=== PATIENT | female | born 1955 | race Caucasian/White ===

== ENCOUNTER 2018-02-11 09:35 | Inpatient (IN) | payer OTHER ==
[2018-02-11] VITALS (8 sets, daily range): BP systolic 107–144; BP diastolic 68–81
[~2018-02-11] VITALS: Ht 165.1 cm; Wt 70.3 kg
[2018-02-11] MEDS ORDERED: ONDANSETRON HCL/PF 4 MG/2 ML VIAL IVP ONE (10:00)
[2018-02-11] MEDS ORDERED: HYDROMORPHONE INJ 2 MG/ML DISP.SYRIN IV ONE (10:00)
[2018-02-11] MEDS ORDERED: IV NS 0.9% 1,000 ML BAG IV ONE (10:00)
--- NOTE | 2018-02-11 10:00 | NUR ---
AAOX3, came to ER c/o NAUSEA AND VOMITING SINCE YESTERDAY RLQ ABD PAIN SINCE THIS MORNING. RR is even and unlabored with nad noted. Skin is warm and dry. Awaiting md for eval.
[2018-02-11 10:11] LABS: BASOPHILS # (AUTO) 0.4 /CMM (0.0-0.2); BASOPHILS % (AUTO) 2.4 % (0.0-2.0); EOSINOPHILS % (AUTO) 0.7 % (0.0-6.0); HEMATOCRIT 39 % (33-45); HEMOGLOBIN 12.5 g/dL (11.5-14.8); LYMPHOCYTES # (AUTO) 1.5 /CMM (0.8-4.8); LYMPHOCYTES % (AUTO) 9.3 % (20.0-44.0); MEAN CORPUSCULAR HEMOGLOBIN 30 PG (26.0-33.0); MEAN CORPUSCULAR HGB CONC 32 g/dl (31.0-36.0); MEAN CORPUSCULAR VOLUME 92 fL (82-100); MONOCYTES # (AUTO) 1.2 /CMM (0.1-1.30); MONOCYTES % (AUTO) 7.3 % (2.0-12.0); NEUTROPHILS # (AUTO) 13.1 /CMM (1.8-8.9); NEUTROPHILS % (AUTO) 80.3 % (43.0-81.0); PLATELET COUNT (AUTO) 480 /CMM (150-450); RDW COEFFICIENT OF VARIATION 17.5 (11.5-15.0); RED BLOOD CELL COUNT(AUTO) 4.24 MIL/uL (4.0-5.2); WHITE BLOOD COUNT (AUTO) 16.3 K/uL (4.3-11.0)
[2018-02-11 10:17] LABS: CALCIUM, SERUM 9.7 mg/dL (8.5-10.1); POTASSIUM 3.9 mmol/L (3.5-5.1)
[2018-02-11 10:23] LABS: ALBUMIN 3.5 g/dL (3.4-5.0); BILIRUBIN,DIRECT 0.1 mg/dL (0.0-0.2); BILIRUBIN,TOTAL 0.4 mg/dL (0.2-1.0); TOTAL PROTEIN, SERUM 7.2 g/dL (6.4-8.2)
[2018-02-11] MEDS ORDERED: ONDANSETRON HCL/PF 4 MG/2 ML VIAL ONE (10:31)
[2018-02-11] MEDS ORDERED: HYDROMORPHONE 1 MG/1 ML DISP.SYRIN ONE ×2 (10:32→12:02)
--- NOTE | 2018-02-11 11:20 | NUR ---
Patient is resting comfortably in bed with eyes closed. Easily aroused. VSS
[2018-02-11] MEDS ORDERED: HYDROMORPHONE 1 MG/1 ML DISP.SYRIN IV ONE (12:00)
[2018-02-11 12:03] LABS: APPEARANCE,URINE Clear (CLEAR); BILIRUBIN,URINE Negative (NEGATIVE); BLOOD, URINE Large Ery/uL (NEGATIVE); COLOR,URINE Yellow (YELLOW); KETONES,URINE Negative (NEGATIVE); LEUKOCYTE ESTERASE ,URINE Small (NEGATIVE); NITRITE, URINE Positive (NEGATIVE); PH,URINE 5.5 (5.0-8.0); PROTEIN,URINE 30 mg/dl (NEGATIVE); UGLUCOSE Negative (NEGATIVE); UROBILINOGEN,URINE 0.2 EU/dL (0.2)
[2018-02-11 12:06] LABS: BACTERIA,URINE 1+ /HPF (None Seen); URINE AMORPHOUS URATE Few /HPF (None Seen)
[2018-02-11] MEDS ORDERED: FLUO-120 PO (12:29)
[2018-02-11] MEDS ORDERED: ATOR40TA PO (12:29)
[2018-02-11] MEDS ORDERED: QUET25TA PO (12:29)
[2018-02-11] MEDS ORDERED: TOPI50TA24 PO (12:29)
[2018-02-11] MEDS ORDERED: GABA-534 PO (12:29)
[2018-02-11] MEDS ORDERED: BUPR300T54 PO (12:29)
[2018-02-11] MEDS ORDERED: CEFTRIAXONE 1 G in IV D5W 50 ML IV ONE (12:30)
[2018-02-11] MEDS ORDERED: CEFTRIAXONE 1GM BAG (ER ONLY) 1 GM/50 ML PIGGYBACK IV ONE (12:30)
--- NOTE | 2018-02-11 12:45 | NUR ---
Rocephin is a duplicate order.
--- NOTE | 2018-02-11 12:50 | NUR ---
Dr Riley at talking to patient.
[2018-02-11 13:01] LABS: INR 0.93 (0.87-1.13)
--- NOTE | 2018-02-11 13:10 | NUR ---
Report given to OR, RN for ANGELA. Patient is goint to OR.
[2018-02-11] MEDS ORDERED: MIDAZOLAM HCL 2 MG/2ML VIAL ONE (13:25)
[2018-02-11] MEDS ORDERED: FENTANYL PF 100MCG/2ML AMPUL ONE ×2 (13:25→14:03)
[2018-02-11] MEDS ORDERED: MEPERIDINE HCL/PF 100 MG/ML DISP.SYRIN ONE (14:08)
[2018-02-11] MEDS ORDERED: LABETALOL HCL IV 100MG VIAL ONE (14:22)
--- NOTE | 2018-02-11 15:00 | NUR ---
MS/RN New admission New admit from operating room, s/p cystoscopy with right sided renal stent placement. Vital signs recorded as per hospital protocol, all remain within normal range for patient. Lethargic following surgery but easily abusable. at bedside, able to assist with information gathering for admission. Call light within reach, safety measures in place, will continue to monitor and ensure safety post surgery.
[2018-02-11] MEDS ORDERED: MORPHINE SULFATE INJ 2 MG/ML DISP.SYRIN IV PRN (15:30)
[2018-02-11] MEDS ORDERED: MAG HYDROX/AL HYDROX/SIMETH 30 ML UDC PO PRN (15:30)
[2018-02-11] MEDS ORDERED: HYDROCODONE/APAP 5/325MG 1 EACH TABLET PO PRN (15:30)
[2018-02-11] MEDS ORDERED: ACETAMINOPHEN 325 MG TABLET PO PRN (15:30)
[2018-02-11] MEDS ORDERED: ONDANSETRON HCL/PF 4 MG/2 ML VIAL IVP PRN (15:30)
[2018-02-11] MEDS ORDERED: Z GUARD REMEDY 2 OZ OINT TP PRN (15:30)
[2018-02-11] MEDS: GABAPENTIN 300 MG CAPSULE PO SCH (17:00)
[2018-02-11] MEDS: MORPHINE SULFATE INJ 4 MG/ML DISP.SYRIN IV PRN ×2 (17:30→20:49)
--- NOTE | 2018-02-11 17:34 | NUR ---
MS/RN Non administer Neurontin 600mg non administered as patient still lethargic from surgery. At risk of aspirating.
[2018-02-11] MEDS ORDERED: OXYMETAZOLINE HCL NASAL SPRAY 30 ML BOTTLE NS PRN (18:00)
--- NOTE | 2018-02-11 18:23 | NUR ---
MS/RN Kris note Remains in stable condition, voiding post surgery, pain well controlled with morphine. Complaining of congestion andstating that uses afrin spray BID at home. MD called and order obtained. Will endorse to night coordinator.
[2018-02-11] MEDS: IV NS 0.9% 1,000 ML IV PRN (18:43)
--- NOTE | 2018-02-11 19:05 | NUR ---
MS RN NOTES RECEIVED LAYING COMFORTABLY ON BED,A/O X4,S/P CYSTOSCOPY WITH RIGHT RENAL STENT PLACEMENT 02/[address] ALCANTAR.PAIN TOLERABLE AT THE MOMENT.CALL LIGHT IN REACH,NEEDS ANTICIPATED.
--- NOTE | 2018-02-11 20:00 | NUR ---
MS RN NOTES AWAKE,ASSISTED TO USE THE BEDPAN,PEED SMALL AMOUNT.C/O MIGRAINE HEADACHE.RESTLESS.ASKING FOR IMITREX,CLAIMED THATS HER HOME MEDS FOR SEVER MIGRAINE NEEDED AND TOPAMAX EVERY NIGHT.
--- NOTE | 2018-02-11 20:10 | NUR ---
MS RN NOTES. DR JHAVERI MADE AWARE,ORDERED OK TO GIVE MEDICATION THAT SHE TAKE S AT HOME. PER PATIENT SHE'S TAKING IMITREX 100MG PO FOR SEVERE MIGRAINE NEEDED.
[2018-02-11] MEDS: SUMATRIPTAN SUCCINATE 100 MG TABLET PO PRN (20:18)
--- NOTE | 2018-02-11 20:18 | NUR ---
MS RN NOTES IMITREX 100 PO GIVEN PER PATIENT REQUEST ORDERED.
--- NOTE | 2018-02-11 20:49 | NUR ---
MS GLORIA NOTES PAIN MANAGEMENT C/O GENERALIZED PAIN 8/10 ON PAIN SCALE,NORCO 10/325MG 1TAB PO GIVEN ORDERED.OFFERED NORCO 5/325MG BUT REFUSED.CLAIMED IT DOESNT WORK AND SHE TAKE NORCO 10/325MG.DR JHAVERI AWARE. Addendum: 02/11/18 at 2128 by JULIO UREÑA RN ABOVE GENERALIZED PAIN MANAGE WITH MORPHINE 2MG IV ORDERED,NOT NORCO 10/325MG
[2018-02-11] MEDS: QUETIAPINE FUMARATE 25 MG TABLET PO SCH (22:12)
[2018-02-11] MEDS: TOPIRAMATE 100 MG TABLET PO SCH (22:13)
[2018-02-11] MEDS: HYDROCODONE/APAP 10/325MG 1 EA TABLET PO PRN (23:59)
[2018-02-12] MEDS: MORPHINE SULFATE INJ 4 MG/ML DISP.SYRIN IV PRN ×3 (05:29→20:49)
--- NOTE | 2018-02-12 05:29 | NUR ---
MS RN NOTES AWAKE THIS TIME.LOSS MITIGATION SPECIALIST AT BEDSIDE FOR MORNING LABS DRAW.C/O GENERALIZED PAIN 8/10 ON PAIN SCALE.MORPHINE 2MG IV GIVEN ORDERED AND PER PATIENT REQUEST.
--- NOTE | 2018-02-12 06:30 | NUR ---
MS RN NOTES CALM AND QUIET AT THIS TIME.PAIN MANAGEMENT EFFECTIVE.STRAINED URINE,NEGATIVE FOR KIDNEY STONE NOTED.WILL CONTINUE TO MONITOR STATUS.
[2018-02-12 06:35] LABS: BASOPHILS % (AUTO) 0.1 % (0.0-2.0); EOSINOPHILS % (AUTO) 0.3 % (0.0-6.0); HEMATOCRIT 32 % (33-45); HEMOGLOBIN 10.1 g/dL (11.5-14.8); LYMPHOCYTES # (AUTO) 1.7 /CMM (0.8-4.8); MEAN CORPUSCULAR HEMOGLOBIN 30 PG (26.0-33.0); MEAN CORPUSCULAR HGB CONC 32 g/dl (31.0-36.0); MEAN CORPUSCULAR VOLUME 94 fL (82-100); MONOCYTES # (AUTO) 1.2 /CMM (0.1-1.30); MONOCYTES % (AUTO) 5.8 % (2.0-12.0); NEUTROPHILS # (AUTO) 18.1 /CMM (1.8-8.9); NEUTROPHILS % (AUTO) 85.8 % (43.0-81.0); PLATELET COUNT (AUTO) 354 /CMM (150-450); RDW COEFFICIENT OF VARIATION 18.3 (11.5-15.0); RED BLOOD CELL COUNT(AUTO) 3.36 MIL/uL (4.0-5.2)
[2018-02-12 06:57] LABS: CALCIUM, SERUM 6.1 mg/dL (8.5-10.1); CREATININE 0.6 mg/dL (0.6-1.3); MAGNESIUM 1.3 mg/dL (1.8-2.4); PHOSPHORUS 5.6 mg/dL (2.5-4.9); POTASSIUM 3.3 mmol/L (3.5-5.1)
[2018-02-12] MEDS: IV NS 0.9% 1,000 ML IV PRN ×2 (07:23→19:54)
[2018-02-12 08:00] VITALS: BP 157/95
[2018-02-12] MEDS: SUMATRIPTAN SUCCINATE 100 MG TABLET PO PRN ×2 (08:00→20:00)
--- NOTE | 2018-02-12 08:00 | NUR ---
MS RN AM NOTES AWAKE AND ORIENTED X4.VERBALLY RESPONSIVE.ASSISTED TO USE THE BEDPAN X3,VOIDED MODERATE AMOUNT-STRAINED URINE EACH TIME BUT NO KIDNEY STONES OBTAINED.C/O MIGRAINE HEADACHE,BACK AND BLADDER DISCOMFORT -IMITREX AND NORCO 10/325 MG PO GIVEN.RESTLESS.POOR APPETITE.ENCOURAGED TO GET UP AND AMBULATE AND NOT JUST STAY IN BED ALL THE TIME.PT IS HESITANT AND WOULD RATHER STAY IN BED.CALL LIGHT PLACED WITHIN REACH.
[2018-02-12] MEDS: HYDROCODONE/APAP 10/325MG 1 EA TABLET PO PRN ×3 (08:01→23:01)
[2018-02-12] MEDS: FLUOXETINE HCL 20 MG CAPSULE PO SCH (09:32)
[2018-02-12] MEDS: BUPROPION XL 150 MG TAB.ER.24 PO SCH (09:32)
[2018-02-12] MEDS: ATORVASTATIN 40 MG TABLET PO SCH (09:32)
[2018-02-12] MEDS ORDERED: CEFTRIAXONE 1 G VIAL IM SCH (10:00)
[2018-02-12] MEDS ORDERED: POTASSIUM CHLORIDE 20 MEQ TAB.PRT.SR PO SCH (11:00)
[2018-02-12] MEDS: Magnesium 1GM/D5W 100ML PREMIX 100 ML IV SCH ×4 (11:11→14:28)
[2018-02-12] MEDS: GABAPENTIN 300 MG CAPSULE PO SCH ×3 (11:19→16:15)
[2018-02-12] MEDS: PIPERACILLIN /TAZOBACTAM 3.375 G in IV D5W 50 ML IV SCH ×3 (12:48→23:02)
[2018-02-12] MEDS ORDERED: CEFTRIAXONE 1 G in IV D5W 50 ML IV SCH (13:00)
--- NOTE | 2018-02-12 13:44 | NUR ---
PT'S UROLOGIST CALLED AND WAS REPORTING PT'S UA C/S RESULT FROM 02/09 SAYING PT HAS E.COLI WHICH IS RESISTANT TO AMPICILLIN BUT SENSITIVE TO CIPRO,MACROBID AND BACTRIM.JESSIE OSORIO MADE AWARE WITH NO NEW ORDER.PT IS ON ZOSYN IV ATB AT PRESENT.
--- NOTE | 2018-02-12 15:49 | NUR ---
PT HAS A VERY POOR APPETITE BUT LOVES TO DRINK PROTEIN SHAKES.NOTIFIED JESSIE OSORIO WITH ORDERS FOR ENSURE ELVIA DRINK TID AND CARRIED OUT.
[2018-02-12 16:00] VITALS: BP 113/68
[2018-02-12] MEDS: ENSURE ENLIVE CHOC 237 ML CAN PO SCH (17:19)
--- NOTE | 2018-02-12 18:32 | NUR ---
PT RESTING IN BED AND ATE DINNER.DENIES ANY PAIN OR DISTRESS.WATCHING TV.CALL LIGHT PLACED WITHIN REACH.
--- NOTE | 2018-02-12 19:29 | NUR ---
MS RN OPENING NOTES: RECEIVED PT ON ROOM AIR AND IS TOLERATING WELL. PT IS AWAKE AND IS ASKING FOR HER IMITREX. EXPLAINED TO HER THAT IT IS DUE AT 1999. PT HAS IV ON L WRIST #20G AND IS BEING INFUSED WITH IV NS AT 75ML/HR. CALL LIGHT WITHIN PT'S REACH. BED KEPT IN LOW, LOCKED POSITION, AND SIDE RAILS X 2UP. WILL CONTINUE TO MONITOR PT.
[2018-02-12 20:00] VITALS: BP 115/59
--- NOTE | 2018-02-12 20:00 | NUR ---
MS RN NOTES: PT COMPLAINING OF SEVERE HEADACHE. PT WAS ADMINISTERED IMITREX 100MG PO. WILL CONTINUE TO MONITOR PT.
--- NOTE | 2018-02-12 20:56 | NUR ---
MS RN NOTES: PT COMPLAINING OF LOWER BACK PAIN AND RIGHT FLANK PAIN 12/22. PT WAS ADMINISTERED MORPHINE VIA IV. WILL CONTINUE TO MONITOR PT.
[2018-02-12] MEDS: TOPIRAMATE 100 MG TABLET PO SCH (21:27)
[2018-02-12] MEDS: QUETIAPINE FUMARATE 25 MG TABLET PO SCH (21:27)
--- NOTE | 2018-02-12 23:05 | NUR ---
MS RN NOTES: PT COMPLAINING OF 8/10 R FLANK PAIN ESPECIALLY WHEN SHE IS URINATING. PT WAS ADMINISTERED NORCO 10. WILL CONTINUE TO MONITOR.
[2018-02-12] MEDS: ZOLPIDEM TARTRATE 5 MG TABLET PO PRN (23:32)
--- NOTE | 2018-02-12 23:35 | NUR ---
MS RN NOTES: PT REQUESTING FOR A SLEEPING AID SINCE HER PAIN HAS BEEN CAUSING HER NOT TO SLEEP. PT WAS ADMINISTERED AMBIEN 5MG PO. WILL CONTINUE TO MONITOR.
[2018-02-13] MEDS: MORPHINE SULFATE INJ 4 MG/ML DISP.SYRIN IV PRN ×4 (02:19→21:56)
--- NOTE | 2018-02-13 02:21 | NUR ---
MS RN NOTES: PT COMPLAINING OF 8/10 RIGHT FLANK PAIN. PT WAS ADMINISTERED MORPHINE 2MG VIA IV. WILL CONTINUE TO MONITOR PT.
[2018-02-13] MEDS: PIPERACILLIN /TAZOBACTAM 3.375 G in IV D5W 50 ML IV SCH ×4 (05:34→23:08)
[2018-02-13 06:40] LABS: BASOPHILS # (AUTO) 0.1 /CMM (0.0-0.2); BASOPHILS % (AUTO) 0.6 % (0.0-2.0); EOSINOPHILS % (AUTO) 1.4 % (0.0-6.0); HEMATOCRIT 35 % (33-45); HEMOGLOBIN 11.1 g/dL (11.5-14.8); LYMPHOCYTES # (AUTO) 2.2 /CMM (0.8-4.8); LYMPHOCYTES % (AUTO) 15.3 % (20.0-44.0); MEAN CORPUSCULAR HEMOGLOBIN 30 PG (26.0-33.0); MEAN CORPUSCULAR HGB CONC 32 g/dl (31.0-36.0); MEAN CORPUSCULAR VOLUME 95 fL (82-100); MONOCYTES # (AUTO) 1.1 /CMM (0.1-1.30); MONOCYTES % (AUTO) 7.6 % (2.0-12.0); NEUTROPHILS # (AUTO) 10.6 /CMM (1.8-8.9); NEUTROPHILS % (AUTO) 75.1 % (43.0-81.0); PLATELET COUNT (AUTO) 364 /CMM (150-450); RDW COEFFICIENT OF VARIATION 18.1 (11.5-15.0); WHITE BLOOD COUNT (AUTO) 14.1 K/uL (4.3-11.0)
--- NOTE | 2018-02-13 06:53 | NUR ---
MS RN CLOSING NOTES: ALL NEEDS WERE ATTENDED AND ANTICIPATED FOR. PT KEPT CLEAN, DRY, AND COMFORTABLE. PT ASLEEP AT THIS TIME. PT HAS IV AND IS BEING INFUSED WITH IV NS 75ML/HR. PT ON ROOM. NO SOB NOTED. NO S/S OF DISTRESS. CALL LIGHT WITHIN PT'S REACH. BED KEPT IN LOW, LOCKED POSITION, AND SIDE RAILS X 2UP. WILL ENDORSE TO AM NURSE FOR ANGELA.
[2018-02-13 07:11] LABS: CALCIUM, SERUM 8.1 mg/dL (8.5-10.1); CREATININE 0.7 mg/dL (0.6-1.3); PHOSPHORUS 2.5 mg/dL (2.5-4.9)
[2018-02-13 07:23] LABS: POTASSIUM 2.8 mmol/L (3.5-5.1)
[2018-02-13 08:00] VITALS: BP 90/50
--- NOTE | 2018-02-13 08:00 | NUR ---
MS GLORIA AM NOTES: RECEIVED PT AWAKE EATING BREAKFAST SITTING ON THE EDGE OF THE BED DENYING MIGRAINE HEADACHE OR BACK PAIN.INFUSING IV NS 75ML/HR-TO LT WRIST INFUSING WELL. DENIES DISTRESS. SLEPT WELL LAST NIGHT PER PT.CALL LIGHT WITHIN PT'S REACH. BED KEPT IN LOW, LOCKED POSITION, AND SIDE RAILS X 2UP.
[2018-02-13] MEDS: ENSURE ENLIVE CHOC 237 ML CAN PO SCH ×3 (08:29→17:40)
[2018-02-13] MEDS: FLUOXETINE HCL 20 MG CAPSULE PO SCH (08:29)
[2018-02-13] MEDS: ATORVASTATIN 40 MG TABLET PO SCH (08:29)
[2018-02-13] MEDS: BUPROPION XL 150 MG TAB.ER.24 PO SCH (08:29)
[2018-02-13] MEDS: GABAPENTIN 300 MG CAPSULE PO SCH ×3 (08:30→17:40)
[2018-02-13] MEDS: IV NS 0.9% 1,000 ML IV PRN ×2 (11:24→23:08)
[2018-02-13] MEDS ORDERED: POTASSIUM CHLORIDE 20 MEQ TAB.PRT.SR PO ONE (11:30)
[2018-02-13] MEDS: FLUCONAZOLE (100 MG) 100 MG TABLET PO SCH (14:44)
[2018-02-13 16:00] VITALS: BP 117/75
[2018-02-13] MEDS: LACTOBACILLUS RHAMNOSUS GG 1 EACH CAP.SPRINK PO SCH (17:40)
--- NOTE | 2018-02-13 18:36 | NUR ---
PT AMBULATED ALONG THE HALLWAY WITH STANDBY ASSIST.CHATTED WITH THE STAFF.VOIDED IN THE TOILET AND PASSED OUT MINIMAL PINK TINGED URINE AND STRAINED THE URINE WITH NO KIDNEY STONES NOTED.C/O SEVERE BLADDER DISCOMFORT WHILE VOIDING.MORPHINE 2 MG IV GIVEN FOR COMFORT.PT IS GETTING SO NERVOUS.INSTRUCTED TO DO DEEP BREATHING.ACTIVE LISTENING AND EMOTIONAL SUPPORT PROVIDED.PT DRANK LOTS OF FLUIDS AND HOOKED BACK TO HER IVF 0.9 NS RUNNING AT 75 ML/HR .ADMINISTERED IV ATB ZOSYN INFUSING WELL.CALL LIGHT PLACED WITHIN REACH.
--- NOTE | 2018-02-13 19:45 | NUR ---
RN INITIAL NOTES: RECEIVED REPORT FROM LORENZO CASTRO, PT IN BED, AWAKE, A/O X4, ON RA RESPIRATION EVEN AND UNLABORED, PT JUST FINISHED EATING DINNER, FOOD BROUGHT BY HER DAUGHTER. DENIES ANY PAIN OR DISCOMFORT AT THIS TIME. IV ACCESS PATENT AND FLUSHING WELL, NO S/S OF INFILTRATION NOTED, NO REDNESS NOTED ON ACCESS SITE, NOTED DRY BLOOD,MINIMAL, INFUSING WITH NS AT 75ML/HR. DISCUSSED PLAN OF CARE TO THE PT, PT HAS SOUND JUDGMENT, UNDERSTAND AND AGREE WITH PLAN. ALSO REQUESTED SLEEPING PILL AT 2100 TO HELP HER GET ENOUGH REST. SAFETY PRECAUTIONS FOR FALL INITIATED, CALL LIGHT IN REACH, WILL CONTINUE MONITORING PT.
[2018-02-13 20:00] VITALS: BP 117/72
[2018-02-13 20:39] VITALS: BP 117/72
--- NOTE | 2018-02-13 20:58 | NUR ---
rn notes: pt requested to wear diaper at night, she claimed that she's voiding frequently, and she doesn't want to keep getting up to the bathroom. Education provided to the pt, as we need to strain her urine every urination. pt insisted to use diaper to make her feel comfortable, she claimed she had problem sleeping due to frequent urination. education provided to pt regarding risk and benefits of using diaper.
[2018-02-13] MEDS: TOPIRAMATE 100 MG TABLET PO SCH (21:18)
[2018-02-13] MEDS: QUETIAPINE FUMARATE 25 MG TABLET PO SCH (21:19)
[2018-02-13 21:50] VITALS: BP 123/72
--- NOTE | 2018-02-13 21:57 | NUR ---
PRN MORPHINE: PT C/O RIGHT FLANK PAIN STATED SHE CAN FEEL SOMETHING ON HER FLANK PROBABLY THE STENT, SHE SAID ITS HURTING EVERY TIME SHE'S MOVING, PT C/O 01/22 PAIN REQUESTING FOR MORPHINE, PRN MORPHINE 2MG IVP ADMINISTERED AT THIS TIME, WILL CONTINUE TO MONITOR AND REASSESS
--- NOTE | 2018-02-13 22:00 | NUR ---
RN NOTES: CHANGED PT'S DIAPER AT THIS TIME, URINE IS YELLOW NO BLOOD NOTED, Z GUARD APPLIED ON GROIN AND PERNIUM AREA FOR PREVENTION OF REDNESS OR EXCORIATION.
[2018-02-13] MEDS: ZOLPIDEM TARTRATE 5 MG TABLET PO PRN (23:08)
--- NOTE | 2018-02-13 23:08 | NUR ---
PRN AMBIEN: PT REQUESTED FOR SLEEPING PILL, PRN AMBIEN 5MG TAB ADMINISTERED AT THIS TIME. ALSO CHANGED PT'S DIAPER, PT VOIDED YELLOW URINE, NO BLOOD NOTED, Z GUARD APPLIED TO PERNEUM AND GROIN TO PREVENT ANY REDNESS OR EXCORIATION
[2018-02-14] MEDS: HYDROCODONE/APAP 10/325MG 1 EA TABLET PO PRN ×2 (01:31→09:57)
--- NOTE | 2018-02-14 01:31 | NUR ---
PRN NORCO: PT C/O 12/22 RIGHT LOWER ABDOMINAL PAIN, REQUESTING FOR NORCO. PRN NORCO 10/325MG TAB PO ADMINISTERED AT THIS TIME, WILL CONTINUE TO MONITOR AND REASSESS
--- NOTE | 2018-02-14 02:30 | NUR ---
RN NOTES: ELIZABETH MCCALLUM CHANGED PT'S DIAPER, PT VOIDED TWICE CLAIMED BY PT, ZGUARD APPLIED ON PERNEAL AND SACRAL AREA FOR PROTECTION
--- NOTE | 2018-02-14 03:58 | NUR ---
RN NOTES: PT SLEEPING AT THIS TME, APPEARS CALM AND COMFORTABLE
--- NOTE | 2018-02-14 05:00 | NUR ---
RN NOTES: PT REQUEST TO HAVE BLOOD DRAW AFTER BREAKFAST
[2018-02-14] MEDS: PIPERACILLIN /TAZOBACTAM 3.375 G in IV D5W 50 ML IV SCH (05:46)
--- NOTE | 2018-02-14 07:03 | NUR ---
rn closing notes: pt in bed, sleeping, last pain medication administered at 0637. respiration even and unlabored. iv access remains patent and flushing well, infusing with ns at 75ml/hr, access site free from redness, no infiltration noted. vs remains stable, needs attended. no further complaints noted. safety precautions for fall remains engaged, call light in reach, will endorse to day rn for continuity of care. Addendum: 02/14/18 at 0705 by ANJANA WHITFIELD RN CORRECTION OF ENTRY: LST PAIN MEDS ADMINISTERED AT 0130AM
--- NOTE | 2018-02-14 07:30 | NUR ---
RN MS NOTES PT IN BED, ASLEEP, EASY TO AROUSE, ALERT AND ORIENTED, NO COMPLAINT OF PAIN OR ANY DISCOMFORT, RESPIRATIONS NORMAL AND NOT LABORED, CALL LIGHT WITHIN REACH, IV FLUIDS INFUSING WELL, NEEDS ATTENDED.
[2018-02-14 08:00] VITALS: BP 108/66
[2018-02-14] MEDS: ENSURE ENLIVE CHOC 237 ML CAN PO SCH ×2 (08:45→12:06)
[2018-02-14] MEDS: FLUOXETINE HCL 20 MG CAPSULE PO SCH (09:57)
[2018-02-14] MEDS: BUPROPION XL 150 MG TAB.ER.24 PO SCH (09:57)
[2018-02-14] MEDS: LACTOBACILLUS RHAMNOSUS GG 1 EACH CAP.SPRINK PO SCH (09:57)
[2018-02-14] MEDS: GABAPENTIN 300 MG CAPSULE PO SCH ×2 (09:57→12:06)
[2018-02-14] MEDS: FLUCONAZOLE (100 MG) 100 MG TABLET PO SCH (09:57)
[2018-02-14] MEDS: ATORVASTATIN 40 MG TABLET PO SCH (09:58)
[2018-02-14 10:45] LABS: BASOPHILS % (AUTO) 0.1 % (0.0-2.0); EOSINOPHILS % (AUTO) 3.9 % (0.0-6.0); HEMATOCRIT 35 % (33-45); HEMOGLOBIN 11.1 g/dL (11.5-14.8); LYMPHOCYTES % (AUTO) 19.7 % (20.0-44.0); MEAN CORPUSCULAR HEMOGLOBIN 30 PG (26.0-33.0); MEAN CORPUSCULAR HGB CONC 32 g/dl (31.0-36.0); MEAN CORPUSCULAR VOLUME 95 fL (82-100); MONOCYTES # (AUTO) 1.1 /CMM (0.1-1.30); MONOCYTES % (AUTO) 10.7 % (2.0-12.0); NEUTROPHILS # (AUTO) 6.6 /CMM (1.8-8.9); NEUTROPHILS % (AUTO) 65.6 % (43.0-81.0); PLATELET COUNT (AUTO) 434 /CMM (150-450); RED BLOOD CELL COUNT(AUTO) 3.65 MIL/uL (4.0-5.2); WHITE BLOOD COUNT (AUTO) 10.1 K/uL (4.3-11.0)
[2018-02-14 10:55] LABS: CALCIUM, SERUM 8.2 mg/dL (8.5-10.1); CREATININE 0.7 mg/dL (0.6-1.3); POTASSIUM 4.2 mmol/L (3.5-5.1)
[2018-02-14] MEDS ORDERED: CEPH-570 PO (11:44)
--- NOTE | 2018-02-14 12:00 | NUR ---
RN MS NOTES PT IN BED, RESTING, IV FLUIDS INFUSING WELL, TOLERATING CURRENT DIET WELL, ABLE TO AMBULATE TO THE BATHROOM WITH STAND BY ASSISTANCE, CALL LIGHT WITHIN REACH, DUE MEDS GIVEN ORDERED.
[2018-02-14] MEDS: CEPHALEXIN MONOHYDRATE 500 MG CAPSULE PO SCH ×2 (12:06→15:15)
--- NOTE | 2018-02-14 14:18 | NUR ---
RN MS NOTES PT IN BED, AWAKE, ALERT AND ORIENTED, NO COMPLAINT OF PAIN OR ANY DISCOMFORT, NOT IN DISTRESS, SEEN BY JO NUCLEAR PLANT TECHNICAL ADVISOR, DISCHARGE ORDER GIVEN, DISCHARGE AND MEDICATION INSTRUCTIONS PROVIDED TO PT, PT TO FOLLOW UP WITH DR. ALCANTAR FOR STONE TREATMENT AND STENT REMOVAL, VERBALIZED UNDERSTANDING, BELONGINGS ACCOUNTED FOR, AWAITING TRANSPORTATION RADIOLOGICAL DEFENSE OFFICER.
--- NOTE | 2018-02-14 15:33 | NUR ---
RN MS NOTES PT SITTING IN BED, AWAKE, ALERT AND ORIENTED, NO COMPLAINT OF PAIN, NOT IN DISTRESS, PRESCRIPTION GIVEN TO PT, PT REQUESTED IF SHE COULD TAKE HER 2ND DOSE OF KEFLEX BEFORE SHE LEAVES, PER ZELDA RIVERA TO GIVE, ASSISTED PT TO HOSPITAL LOBBY, PT ARRANGED FOR UBER TO PICK HER UP.
== END 2018-02-14 15:30 | disposition home or self-care (01) | DRG 872 ==
LOC: ER 09:39 → MEDSG2 13:02
PROVIDERS: ADMIT Nurse Practitioner Acute Care; ATTEND Nurse Practitioner Acute Care
PROC: 0T768DZ Dilation of Right Ureter with Intraluminal Device, Via Natural or Artificial Opening Endoscopic (ICD-10-PCS; principal; 2018-02-11 13:15)
DX: A41.9 Sepsis, unspecified organism (principal); N20.1 Calculus of ureter; N13.6 Pyonephrosis; E87.0 Hyperosmolality and hypernatremia; E03.9 Hypothyroidism, unspecified; E87.6 Hypokalemia; F32.9 Major depressive disorder, single episode, unspecified; E78.5 Hyperlipidemia, unspecified; E83.39 Other disorders of phosphorus metabolism; F41.1 Generalized anxiety disorder; D64.9 Anemia, unspecified; N28.1 Cyst of kidney, acquired; Z87.442 Personal history of urinary calculi; Z87.39 Personal history of other diseases of the musculoskeletal system and connective tissue; K76.89 Other specified diseases of liver; Z98.1 Arthrodesis status
CPT/HCPCS: 36415; 71045-TC; 74018; 80048-TC; 80061-TC; 80076-TC; 81000-TC; 83690-TC; 83735-TC; 84100-TC; 85025-TC; 85730-TC; 87040-TC; 87081-TC; 87086-TC; 87186-TC; A4217; A4606; J0696; J1170; J2175; J2250; J2270; J2405; J2543; J3010; J3475; J3490; J7030; J7060; Z7610